=== PATIENT | male | born 1960 | race Caucasian/White ===

== ENCOUNTER 2017-07-03 10:50 | Day surgery (SDC) | payer OTHER ==
[2017-07-01 15:19] VITALS: BMI 33.0
[~2017-07-03 10:50] MED LIST: LACTATED RINGERS 1,000 ML IV SCH; LIDOCAINE 1% 20 ML VIAL (10MG/ML) FOR IV START INTRADERMA PRN
[2017-07-03 11:56] VITALS: TEMP 98
[2017-07-03] MEDS ORDERED: LACTATED RINGERS 1,000 ML IV ONE (12:03)
[2017-07-03] MEDS ORDERED: PROPOFOL 10 MG/ML 20 ML VIAL IV ONE (12:56)
[2017-07-03] MEDS ORDERED: LIDOCAINE 1% INJ 10MG/ML (20 ML MDV) ONE (12:56)
[2017-07-03 13:19] VITALS: RESP 16
--- NOTE | 2017-07-03 13:21 | P.PCN ---
Date of Procedure: 07/03/17 Procedure(s) Performed: Brief history: Patient is a pleasant 57-year-old white male, scheduled for an elective upper endoscopy as well as colonoscopy as a part of evaluation of long-standing history of GERD and screening for colorectal neoplasia Procedure performed: Esophagogastroduodenoscopy with biopsy Colonoscopy with snare polypectomy. Preoperative diagnosis: GERD Screening for colon cancer Anesthesia: MAC Procedure: After informed consent was obtained from the patient was brought into the endoscopy unit and IV sedation was administered by anesthesia under continuous monitoring. Initially upper endoscopy was done. The Olympus GF 160 video endoscope was inserted inserted into the mouth and esophagus intubated without any difficulty and was gradually advanced into the stomach and duodenum and carefully examined. The bulb and second part of the duodenum appeared normal. The scope was then withdrawn into the stomach adequately insufflated with air and upon careful examination the antrum had mild gastritis and biopsies were done from this area. The body, cardia and fundus appeared normal. The scope was then withdrawn into the esophagus. small hiatal hernia noted. The GE junction was located at 40 cm to the incisors. It appeared regular with no erythema erosions or ulcerations. Rest of the esophagus appeared normal. Patient tolerated the procedure well. At this time the patient continued to remain sedation. Initial digital rectal examination was normal. Olympus CF 160 video colonoscope was then inserted into the rectum and gradually advanced to the cecum without any difficulty. Careful examination was performed as the scope was gradually being withdrawn. The prep was excellent. The cecum, ascending colon, appeared normal. In the proximal transverse colon at 80 cm from the anal was there was a 1 m flat polyp removed by snare polypectomy. Rest of the transverse colon, descending colon, sigmoid colon and rectum appeared normal. Scattered sigmoid diverticula seen. Retroflexion was performed in the rectum and no lesions were noted. Patient tolerated the procedure well. Impression: 1. Upper endoscopy revealed small hiatal hernia and mild antral gastritis. 2. Colonoscopy revealed 1 cm transverse colon polyp status post snare polypectomy and scattered sigmoid diverticulosis. Recommendations: Findings of this examination were discussed with the patient as well as his family. He was advised to follow with the biopsy results. If the biopsy shows a tubular adenoma, he can have a repeat colonoscopy in 3-5 years.
[2017-07-03 13:48] VITALS: BP 148/81; PULSE 87
== END 2017-07-03 13:53 | disposition home or self-care (01) ==
LOC: ORWHC2ENDO 10:50
PROVIDERS: ATTEND Internal Medicine Gastroenterology
DX: Z12.11 Encounter for screening for malignant neoplasm of colon (principal); K29.50 Unspecified chronic gastritis without bleeding; D12.3 Benign neoplasm of transverse colon; K44.9 Diaphragmatic hernia without obstruction or gangrene; K21.9 Gastro-esophageal reflux disease without esophagitis; K57.30 Diverticulosis of large intestine without perforation or abscess without bleeding; I25.10 Atherosclerotic heart disease of native coronary artery without angina pectoris; I10 Essential (primary) hypertension; I25.2 Old myocardial infarction; Z79.02 Long term (current) use of antithrombotics/antiplatelets; Z79.82 Long term (current) use of aspirin; Z79.899 Other long term (current) drug therapy
CPT/HCPCS: 88305; 88342; 45385; 43239; J2001; J2704

== ENCOUNTER → 2020-04-20 | Outpatient (CLI) | payer OTHER ==
--- NOTE | 2020-04-20 11:35 | US ---
EXAMINATION TYPE: US kidneys/renal and bladder DATE OF EXAM: 04/20/2020 COMPARISON: NONE CLINICAL HISTORY: R31.1 MICRO HEMATURIA. EXAM MEASUREMENTS: Right Kidney: 9.9 x 6.3 x 4.6 cm Left Kidney: 10.3 x 6.1 x 5.1 cm Post Void Residual Volume: 10.5 mL Right Kidney: No hydronephrosis or masses seen Left Kidney: No hydronephrosis or masses seen Bladder: wnl Bilateral Jets seen: yes Normal Post Void Residual: yes, Calcification is noted within patient's prostate gland. There is no evidence for hydronephrosis at this point in time. No nephrolithiasis is seen. No samantha s are identified. The urinary bladder is anechoic. Bilateral ureteral jets are seen. IMPRESSION: No significant abnormality is appreciated.
== END | disposition home or self-care (01) ==
LOC: RADUSWWP 10:46
PROVIDERS: ATTEND Urology
DX: R31.1 Benign essential microscopic hematuria (principal); Z88.8 Allergy status to other drugs, medicaments and biological substances
CPT/HCPCS: 76770

== ENCOUNTER 2023-04-03 08:54 | Day surgery (SDC) | payer OTHER ==
[2023-04-01 09:54] VITALS: BMI 31.5
[2023-04-03 09:24] VITALS: RESP 16; TEMP 96.9
[2023-04-03] MEDS ORDERED: LACTATED RINGERS 1,000 ML IV ONE (09:32)
[2023-04-03] MEDS ORDERED: PROPOFOL 10 MG/ML 20 ML VIAL IV ONE (10:27)
--- NOTE | 2023-04-03 10:42 | P.PCN ---
Date of Procedure: 04/03/23 Procedure(s) Performed: BRIEF HISTORY: Patient is a 63-year-old pleasant white male scheduled for an elective colonoscopy as a part of prior history of colon polyps. Last colonoscopy was 5 years ago. PROCEDURE PERFORMED: Colonoscopy snare polypectomy. PREOPERATIVE DIAGNOSIS: History of colon polyps. IV sedation per Anesthesia. PROCEDURE: After informed consent was obtained, the patient, was brought into the endoscopy unit. IV sedation was administered by Anesthesia under continuous monitoring. Digital rectal examination was normal. Initially the Olympus CF-160 flexible video colonoscope was then inserted in the rectum, gradually advanced into the cecum without any difficulty. Careful examination was performed as the scope was gradually being withdrawn. Ileocecal valve and the appendiceal orifice were visualized and appeared normal. Prep was excellent. Mucosa of the cecum, ascending colon, appeared normal. In the transverse colon there was a 5 mm polyp that was removed by snare polypectomy. Rest of the transverse colon, descending colon, sigmoid colon, and rectum appeared normal. Scattered sigmoid diverticulosis. Retroflexion was performed in the rectum and no lesions were seen. The patient tolerated the procedure well. IMPRESSION: 5 mm mid transverse colon polyp status post cold snare polypectomy Scattered sigmoid diverticulosis RECOMMENDATIONS: Findings of this examination were discussed with the patient as well as his family.. He was advised to follow with the biopsy results. If the biopsy results adenoma he can have a repeat colonoscopy in 5 years.
[2023-04-03 11:06] VITALS: BP 168/91; PULSE 61
== END 2023-04-03 11:25 | disposition home or self-care (01) ==
LOC: ORWHC2ENDO 08:54
PROVIDERS: ATTEND Internal Medicine Gastroenterology
DX: Z12.11 Encounter for screening for malignant neoplasm of colon (principal); D12.3 Benign neoplasm of transverse colon; K57.30 Diverticulosis of large intestine without perforation or abscess without bleeding; I25.2 Old myocardial infarction; I25.10 Atherosclerotic heart disease of native coronary artery without angina pectoris; I10 Essential (primary) hypertension; K21.9 Gastro-esophageal reflux disease without esophagitis; Z79.02 Long term (current) use of antithrombotics/antiplatelets; Z79.899 Other long term (current) drug therapy
CPT/HCPCS: 88305; 45385; J2704

== ENCOUNTER 2024-12-28 08:52 | Day surgery (SDC) | payer MEDICARE ==
[2024-12-28] MEDS: LACTATED RINGERS 1,000 ML IV ONE (09:12)
[2024-12-28 09:22] VITALS: TEMP 98
[2024-12-28] MEDS: LACTATED RINGERS 1,000 ML IV SCH (09:22)
[2024-12-28] MEDS ORDERED: PROPOFOL 10 MG/ML 20 ML VIAL IV ONE (10:30)
[2024-12-28] MEDS ORDERED: LIDOCAINE 1% INJ 10MG/ML (20 ML MDV) ONE (10:30)
--- NOTE | 2024-12-28 10:51 | P.PCN ---
Date of Procedure: 12/28/24 Procedure(s) Performed: BRIEF HISTORY: Patient is a 60-year-old, pleasant, white male scheduled for an upper endoscopy as a part of evaluation of longstanding history of GERD.. He is on Pepcid 20 mg twice daily and Nexium as needed. Still has daily symptoms with nocturnal passive regurgitation. PROCEDURE PERFORMED: Esophagogastroduodenoscopy with biopsy. PREOPERATIVE DIAGNOSIS: Longstanding history of GERD. IV sedation per anesthesia. PROCEDURE: After informed consent was obtained, the patient was brought into the endoscopy unit. IV sedation was administered by Anesthesia under continuous monitoring. Initially the Olympus GIF-140 video endoscope was inserted into the mouth. Esophagus intubated without any difficulty. It was gradually advanced into the stomach and duodenum and carefully examined. The bulb and the second part of the duodenum appeared normal. The scope at this time was withdrawn to the stomach, adequately insufflated with air, and upon careful examination, mucosa of the antrum mild gastritis and biopsies were done from this area. Mucosa, body, cardia and the fundus appeared normal. The scope was then withdrawn into the esophagus. Moderate size hiatal hernia noted. The GE junction was located at 35 cm from the incisors. There was short segment of Angela's esophagus extending 3 to 4 mm proximal to the GE junction that was biopsied. The rest of the esophagus appeared normal. There were no erosions or ulcerations seen and the patient tolerated the procedure well. IMPRESSION: 1. Moderate size hiatal hernia. 2. Short segment Angela's esophagus 3. Mild antral gastritis. RECOMMENDATIONS: The findings of this examination were discussed with the patient as well as his family. He was advised to increase the Pepcid to 40 mg twice daily and use Nexium as needed. If the biopsy confirms the presence of Angela's esophagus, he can have repeat upper endoscopy in 3 years..
[2024-12-28 11:30] VITALS: BP 145/90; PULSE 60; RESP 18
== END 2024-12-28 12:00 | disposition home or self-care (01) ==
LOC: ORWHC2ENDO 08:52
PROVIDERS: ATTEND Internal Medicine Gastroenterology
DX: K22.70 Barrett's esophagus without dysplasia (principal); K29.50 Unspecified chronic gastritis without bleeding; K31.89 Other diseases of stomach and duodenum; K21.00 Gastro-esophageal reflux disease with esophagitis, without bleeding; K44.9 Diaphragmatic hernia without obstruction or gangrene; I10 Essential (primary) hypertension; I25.10 Atherosclerotic heart disease of native coronary artery without angina pectoris; I25.2 Old myocardial infarction; Z95.5 Presence of coronary angioplasty implant and graft; E78.5 Hyperlipidemia, unspecified; Z79.02 Long term (current) use of antithrombotics/antiplatelets; Z79.899 Other long term (current) drug therapy
CPT/HCPCS: 88305; 43239; J2003; J2704

== ENCOUNTER → 2025-05-08 | Outpatient (CLI) | payer MEDICARE ==
--- NOTE | 2025-05-08 15:07 | MR ---
MR shoulder LT wo con DATE OF EXAM: 05/08/2025 9:58 AM COMPARISON: None. CLINICAL INDICATION: Male, 65 years old with history of M54.10 RADICULOPATHY M25.512 LT SHOULDER PAIN ; [facility], Lt shoulder pain TECHNIQUE: Noncontrast multiplanar, multiecho imaging of the left shoulder was performed, including T 1-weighted and fluid sensitive sequences. FINDINGS: Rotator cuff: Supraspinatus and infraspinatus: Multiple small cyst-like structures appear to emanate from a high-gr ani partial-thickness bursal surface tear of the anterior and mid supraspinatus fibers at the footpla te. Small full-thickness perforation at the posterior supraspinatus fibers. Marked tendinosis with po ssible low-grade articular surface tearing of the posterior supraspinatus and infraspinatus tendons. Subscapularis: Intact. Teres minor: Intact. Cuff muscles: Symmetric bulk and signal intensity. Acromioclavicular joint: Severe arthrosis with joint effusion and moderate capsular hypertrophy. SA-SD bursa: Small volume bursal fluid. Long head biceps tendon: Intact, with normal course. Intra-articular tendinosis. Rotator Interval: Normal signal intensity. Axillary pouch: Distended with fluid. Somewhat diminutive appearance of the humeral attachments, pres umably degenerative. No adjacent edema. Labrum: Large discrete displaced posterior superior and posterior labral tear with concomitant degene rative fraying. Cartilage: Diffuse high-grade chondral loss of the superior humeral head apex with subchondral cystic change. High-grade full-thickness cartilage loss of the glenoid with dispersed subchondral cystic ch trinh, predominantly of the inferior and posterior glenoid. [id number] apposition glenohumeral joint . Presumed reactive edema-like marrow signal of the humeral head and the bony glenoid. Large humeral head osteophytes. Marrow: As above. Additional prominent subcortical cyst of the lesser tuberosity. No fracture or laurie ow replacing process. Other soft tissues: Large debris-filled joint effusion and synovitis. No axillary adenopathy. IMPRESSION: 1. Predominantly high-grade partial-thickness bursal surface tearing of the supraspinatus at the ins ertion, though a small full-thickness perforation is suspected of the posterior fibers. Additional lo w-grade tearing and tendinosis of the infraspinatus. 2. Severe osteoarthrosis of the shoulder joint with labral tearing and degeneration as well as effus ion and synovitis. [facility], , 05/08/2025 3:05 PM
== END | disposition home or self-care (01) ==
LOC: RADMRIMAIN 08:45
PROVIDERS: ATTEND Family Medicine
DX: S46.012A Strain of muscle(s) and tendon(s) of the rotator cuff of left shoulder, initial encounter (principal); M19.012 Primary osteoarthritis, left shoulder; M25.411 Effusion, right shoulder; M25.412 Effusion, left shoulder